=== PATIENT | female | born 1975 | race Two or more races ===

== ENCOUNTER 2018-07-17 07:28 | Emergency (ER) | payer OTHER ==
[~2018-07-17] VITALS: Ht 152.4 cm; Wt 72.6 kg
[2018-07-17] MEDS ORDERED: Tetanus/Diptheria/Pertussis Vaccine 0.5ml Syr IM ONE (08:00)
[2018-07-17] MEDS ORDERED: Tylenol #3 tab (300mg/30mg) PO ONE (08:00)
[2018-07-17] MEDS ORDERED: Bacitracin Oint UD TOPIC ONE (09:10)
[2018-07-17 09:28] VITALS: BP 142/70
--- NOTE | 2018-07-17 09:34 | Diagnostic Imaging Report ---
EXAM: XR Left Wrist Complete, 3 or More Views CLINICAL HISTORY: PAIN TECHNIQUE: Frontal, lateral and oblique views of the left wrist. COMPARISON: No relevant prior studies available. FINDINGS: Bones/joints: Unremarkable. No visible displaced fracture. No dislocation. No osseous erosions. Visualized joint spaces appear unremarkable. Soft tissues: Diffuse soft tissue swelling overlying the wrist. Possible tiny soft tissue gas lucencies along the ulnar and volar aspect of the wrist and distal forearm. No radiodense foreign bodies. IMPRESSION: Diffuse soft tissue swelling overlying the wrist. Possible tiny soft tissue gas lucencies along the ulnar and volar aspect of the wrist and distal forearm.
[2018-07-17] MEDS ORDERED: ACETAMINOPHEN-1 EAC1 ORAL (09:35)
[2018-07-17] MEDS ORDERED: CEPHALEXIN500 MG ORAL (09:36)
[2018-07-17 09:44] VITALS: BP 142/70
--- NOTE | 2018-07-17 10:35 | Emergency Room Report ---
History of Present Illness General Chief Complaint: Laceration Source: Patient Present Illness HPI 42-year-old female presents ED for evaluation. Patient states she accidentally cut her left wrist in the bread machine at work today. 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 Tetanus unknown. Pain is 8 out of 10, dull, nonradiating. Also notes swelling to the wrist. Denies any other injuries. No other aggravating relieving factors. Denies any other associated symptoms Allergies: Coded Allergies: No Known Allergies (Unverified , 07/17/18) Patient History Past Medical History: none Past Surgical History: none Pertinent Family History: none Social History: Denies: smoking, alcohol use, drug use Now: No Immunizations: UTD Reviewed Nursing Documentation: PMH: Agreed; PSxH: Agreed Nursing Documentation-PMH Past Medical History: No Stated History Review of Systems All Other Systems: negative except mentioned in HPI Physical Exam Vital Signs Date Time Temp Pulse Resp B/P (MAP) Pulse Ox O2 Delivery O2 Flow Rate FiO2 07/17/18 07:36 98.2 76 18 146/76 98 Room Air Sp02 EP Interpretation: reviewed, normal General Appearance: no apparent distress, alert, GCS 15, non-toxic Head: normocephalic Eyes: bilateral eye normal inspection, bilateral eye PERRL ENT: normal ENT inspection Neck: normal inspection Respiratory: normal inspection Cardiovascular #1: normal inspection Gastrointestinal: normal inspection Rectal: deferred Genitourinary: no CVA tenderness Musculoskeletal: swelling - L wrist Neurologic: alert, oriented x3, responsive, motor strength/tone normal, sensory intact, speech normal Psychiatric: normal inspection Skin: laceration - 1cm laceation to L wrist. subcutaneous fat noted Lymphatic: normal inspection Procedures Splinting Splinting : Consent: Verbal Pre-Made Type: velcro Splint: wrist Pre-Proc Neuro Vasc Exam: normal Post-Proc Neuro Vasc Exam: normal Patient Tolerated: Well Complications: None Laceration/Wound Repair Laceration/Wound Repair : Consent: Verbal Wound Location: upper extremity - L wrist Wound's Depth, Shape: linear Wound Explored: clean Betadine Prep?: Yes Anesthesia: 1% Lidocaine Wound Debrided: minimal Wound Repaired With: sutures Suture Size/Type: 4:0, proline Layer Closure?: No Sterile Dressing Applied?: Yes Splint Applied?: Yes Sling Applied?: No Patient Tolerated: Well Complications: None Medical Decision Making Diagnostic Impression: Primary Impression: Laceration ER Course Hospital Course 42 yo F presents with L wrist swelling, laceration Differential diagnoses include: Fracture, dislocation, sprain, contusion Clinical course Patient placed on stretcher. After initial history and physical, I ordered pain medications, TDAP and Xrays of L wrist Xrays prelim read shows no acute fracture/dislocation. + soft tissue swellin Wound irrigated. Laceration repaired. Placed in left wrist splint. Discussed findings with patient. Safe for discharge and close outpatient follow-up. We' ll prescribe analgesics and antibiotics Diagnosis - laceration Stable and discharged to home with prescription for Tylenol #3, keflex. wound care instructions given. apply ice, keep elevated. weight bear as tolerated. return in 7-10 days for suture removal. Followup with PMD. Return to ED if symptoms recur or worsen Other X-Ray Diagnostic Results Other X-Ray Diagnostic Results : X-Ray ordered: L wrist # of Views/Limited Vs Complete: 3 View Indication: Pain EP Interpretation: Yes Interpretation: no dislocation, no fractures Impression: Other - soft tissue swelling Electronically Signed by: Electronically signed by Rylan Vergara MD Last Vital Signs Date Time Temp Pulse Resp B/P (MAP) Pulse Ox O2 Delivery O2 Flow Rate FiO2 07/17/18 09:44 98.0 75 20 142/70 100 Room Air Status: improved Disposition: HOME, SELF-CARE Condition: Stable Scripts Cephalexin* (KEFLEX*) 500 Mg Capsule 500 MG ORAL EVERY 6 HOURS for 7 Days, CAP Prov: Rylan Vergara MD 07/17/18 Acetaminophen With Codeine (T#3) (TYLENOL #3 TAB*) Y Tab 1 TAB ORAL Q4H PRN for For Pain for 5 Days, TAB Prov: Rylan Vergara MD 07/17/18 Departure Forms: Return to Work Return to Work Date: Jul 13, 2018 Work Restrictions: No Heavy Lifting Patient Instructions: Laceration Care, Adult Additional Instructions: return to ED in 7-10 days for suture removal Rylan Vergara MD Jul 17, 2018 10:35
== END 2018-07-17 09:44 | disposition home or self-care (01) ==
LOC: EMR 08:02
DX: S61.512A Laceration without foreign body of left wrist, initial encounter (principal); W31.89XA Contact with other specified machinery, initial encounter; Y92.89 Other specified places as the place of occurrence of the external cause; Y99.0 Civilian activity done for income or pay; Z23 Encounter for immunization
CPT/HCPCS: 90471; 90715; 99283